=== PATIENT | male | born 1950 | race Caucasian/White ===

== ENCOUNTER 2019-10-02 10:45 | Outpatient (RCR) | payer MEDICARE, OTHER, SELFPAY | END 2019-10-16 00:01 | LOC: GPT 10:45 | PROVIDERS: Visit Provider Family Medicine | DX: M54.2 Cervicalgia (principal) | CPT/HCPCS: 97110 ×4; 97140 ×3; 97161; 97530; G0283 ×4 ==

== ENCOUNTER 2019-10-17 06:00 | Outpatient (RCR) | payer MEDICARE, OTHER, SELFPAY | END 2019-11-16 23:59 | disposition home or self-care (01) | LOC: GPT 06:00 | PROVIDERS: Visit Provider Family Medicine | DX: M54.2 Cervicalgia (principal); M25.619 Stiffness of unspecified shoulder, not elsewhere classified | CPT/HCPCS: 97032; 97110; 97140; 97530 ==

== ENCOUNTER 2022-02-08 06:00 | Outpatient (RCR) | payer MEDICARE, SELFPAY | END 2022-02-13 23:59 | disposition home or self-care (01) | LOC: GPT 06:00 | PROVIDERS: Referring Provider Surgery; Visit Provider Surgery | DX: M54.16 Radiculopathy, lumbar region (principal); M48.061 Spinal stenosis, lumbar region without neurogenic claudication; R53.1 Weakness | CPT/HCPCS: 97110; 97162 ==

== ENCOUNTER 2022-02-14 06:00 | Outpatient (RCR) | payer MEDICARE, SELFPAY | END 2022-02-18 23:59 | disposition home or self-care (01) | LOC: GPT 06:00 | PROVIDERS: Referring Provider Surgery; Visit Provider Surgery | DX: R29.898 Other symptoms and signs involving the musculoskeletal system (principal); M48.061 Spinal stenosis, lumbar region without neurogenic claudication; M54.16 Radiculopathy, lumbar region | CPT/HCPCS: 97110 ==

== ENCOUNTER 2022-08-17 06:00 | Outpatient (RCR) | payer MEDICARE, SELFPAY | END 2022-09-15 23:59 | disposition home or self-care (01) | LOC: GPT 06:00 | PROVIDERS: Visit Provider Orthopaedic Surgery | DX: M25.512 Pain in left shoulder (principal) | CPT/HCPCS: 97110; 97112; 97140; 97162; 97535; G0283 ==

== ENCOUNTER 2022-11-23 06:00 | Outpatient (RCR) | payer MEDICARE, SELFPAY | END 2022-12-14 23:55 | disposition home or self-care (01) | LOC: GPT 06:00 | PROVIDERS: Visit Provider Internal Medicine | DX: M25.512 Pain in left shoulder (principal) | CPT/HCPCS: 97110; 97112; 97140; 97162 ==

== ENCOUNTER 2022-12-15 06:00 | Outpatient (RCR) | payer MEDICARE, SELFPAY | END 2023-01-14 23:59 | disposition home or self-care (01) | LOC: GPT 06:00 | PROVIDERS: Visit Provider Internal Medicine | DX: M25.512 Pain in left shoulder (principal) | CPT/HCPCS: 97110; 97112; 97140; 97164; 97530 ==

== ENCOUNTER 2023-01-15 06:00 | Outpatient (RCR) | payer MEDICARE, SELFPAY | END 2023-02-13 23:59 | disposition home or self-care (01) | LOC: GPT 06:00 | PROVIDERS: Visit Provider Internal Medicine | DX: M25.512 Pain in left shoulder (principal) | CPT/HCPCS: 97110; 97112; 97530 ==